=== PATIENT | male | born 1960 | race Caucasian/White ===

== ENCOUNTER 2018-07-07 13:42 | Inpatient (IN) | payer MEDICARE, OTHER ==
[2018-07-07] MEDS ORDERED: SODIUM CHLORIDE 0.9% 1,000 ML IV STA (14:29)
--- NOTE | 2018-07-07 14:35 | ED ---
General Adult HPI - General Chief complaint: Recheck/Abnormal Lab/Rx Stated complaint: confusion/foot pain Time Seen by Provider: 07/07/18 14:20 Source: patient, RN notes reviewed Mode of arrival: ambulatory Limitations: no limitations - History of Present Illness Initial comments: Patient 57-year-old male presented to the emergency room today with a chief complaint of infection to the right foot. Patient poor historian. He does state that he had surgery on his foot 8 years ago. He states that he was admitted at [facility] for 8 days and was released 8 days ago. He states that he was called by the family doctor's office and advised to come here in the emergency room for further evaluation. Patient states he does not believe that he is on an antibiotic but is unsure patient denies any other complaints currently. Patient denies any recent fever, chills, shortness of breath, chest pain, back pain, abdominal pain, nausea or vomiting, numbness or tingling, headaches or visual changes, or any other complaints. - Related Data Home Medications Medication Instructions Recorded Confirmed Aspirin 81 mg PO DAILY 03/14/14 07/07/18 Fluticasone/Salmeterol [Advair 1 puff INHALATION Q12HR 03/14/14 07/07/18 250-50 Diskus] cloZAPine [Clozaril] 300 mg PO HS 03/14/14 07/07/18 Albuterol Inhaler [Ventolin Hfa 1 puff INHALATION RT-QID PRN 07/07/18 07/07/18 Inhaler] Atenolol/Chlorthalidone [Tenoretic 1 tab PO DAILY 07/07/18 07/07/18 100 Tablet] Atorvastatin [Lipitor] 20 mg PO HS 07/07/18 07/07/18 Cholecalciferol [Vitamin D3] 2,000 unit PO DAILY 07/07/18 07/07/18 Divalproex ER [Depakote ER] 1,000 mg PO DAILY 07/07/18 07/07/18 Divalproex ER [Depakote ER] 1,500 mg PO HS 07/07/18 07/07/18 Docusate Sodium [Dok] 100 mg PO BID PRN 07/07/18 07/07/18 Ibuprofen [Motrin] 800 mg PO QID PRN 07/07/18 07/07/18 Ranitidine HCl 150 mg PO BID 07/07/18 07/07/18 cloZAPine [Clozaril] 100 mg PO DAILY 07/07/18 07/07/18 cloZAPine [Clozaril] 100 mg PO DAILY@1800 07/07/18 07/07/18 Allergies Allergy/AdvReac Type Severity Reaction Status Date / Time No Known Allergies Allergy Verified 07/07/18 13:53 Review of Systems ROS Statement: Those systems with pertinent positive or pertinent negative responses have been documented in the HPI. ROS Other: All systems not noted in ROS Statement are negative. Past Medical History Past Medical History: GERD/Reflux, Hyperlipidemia, Hypertension Additional Past Medical History / Comment(s): bipolar, schizophrenia, recent falls. History of Any Multi-Drug Resistant Organisms: None Reported Additional Past Surgical History / Comment(s): fx right foot. Past Anesthesia/Blood Transfusion Reactions: Unable to Obtain Past Psychological History: Bipolar, Schizophrenia Smoking Status: Current every day smoker Past Alcohol Use History: None Reported Past Drug Use History: None Reported General Exam - General Exam Comments Initial Comments: General: The patient is awake and alert, in no distress, and does not appear acutely ill. Eye: Extra-ocular movements are intact. No nystagmus. There is normal conjunctiva bilaterally. No signs of icterus. Ears, nose, mouth and throat: There are moist mucous membranes and no oral lesions. Neck: The neck is supple. Cardiovascular: There is a regular rate and rhythm. No murmur, rub or gallop is appreciated. Respiratory: Lungs are clear to auscultation, respirations are non-labored, breath sounds are equal. No wheezes, stridor, rales, or rhonchi. Musculoskeletal: Patient does have mild redness over the medial aspect of the first metatarsal. There is a pin or screw that appears to be exposed going through the skin. His pupils 2+. Sensations are intact. Cap refill less than 2 seconds. Shows good range of motion. Neurological: A&O x 3. CN II-XII intact, There are no obvious motor or sensory deficits. Coordination appears grossly intact. Speech is normal. Skin: Skin is warm and dry and no rashes or lesions are noted. Psychiatric: Cooperative, appropriate mood & affect, normal judgment. Limitations: no limitations Course Vital Signs 07/07/18 13:53 Temperature 97.9 F Pulse Rate 101 H Respiratory 18 Rate Blood Pressure 118/76 O2 Sat by Pulse 98 Oximetry Medical Decision Making - Medical Decision Making Patient's labs been reviewed does show 11,000 white count today all with lactic acid of 2.1. Patient was given a liter bolus here the emergency room. His vitals currently stable. Was tachycardic warm on occasion. No fever. Patient' [facility] Patient does have some redness over the medial aspect of the right foot. There is a screw that is improving through the skin. Patient will be started on antibiotics of vancomycin, Zosyn. Case discussed with physician Dr. Orozco who did discuss case with physician Dr. Chen request consult to infectious disease and orthopedics. - Lab Data Result diagrams: 07/07/18 14:47 07/07/18 14:47 Lab Results 07/07/18 07/07/18 07/07/18 Range/Units 14:47 14:47 14:47 WBC 11.7 H (3.8-10.6) k/uL RBC 3.68 L (4.30-5.90) m/uL Hgb 11.6 L (13.0-17.5) gm/dL Hct 36.8 L (39.0-53.0) % MCV 100.0 (80.0-100.0) fL MCH 31.6 (25.0-35.0) pg MCHC 31.5 (31.0-37.0) g/dL RDW 14.5 (11.5-15.5) % Plt Count 473 H (150-450) k/uL Neutrophils % (Manual) 71 % Band Neutrophils % 4 % Lymphocytes % (Manual) 11 % Monocytes % (Manual) 6 % Metamyelocytes % 4 % Myelocytes % 5 % Neutrophils # (Manual) 8.70 H (1.3-7.7) k/uL Lymphocytes # (Manual) 1.29 (1.0-4.8) k/uL Monocytes # (Manual) 0.70 (0-1.0) k/uL Metamyelocytes # (Man) 0.47 H (0) k/uL Myelocytes # (Manual) 0.59 H (0) k/uL Nucleated RBCs 0 (0-0) /100 WBC Manual Slide Review Performed Polychromasia Present Anisocytosis (manual) Present Macrocytosis Slight Sodium 139 (137-145) mmol/L Potassium 4.7 (3.5-5.1) mmol/L Chloride 104 (98-107) mmol/L Carbon Dioxide 26 (22-30) mmol/L Anion Gap 9 mmol/L BUN 26 H (9-20) mg/dL Creatinine 1.18 (0.66-1.25) mg/dL Est GFR (CKD-EPI)AfAm 79 (>60 ml/min/1.73 sqM) Est GFR (CKD-EPI)NonAf 69 (>60 ml/min/1.73 sqM) Glucose 122 H (74-99) mg/dL Plasma Lactic Acid Otilio 2.1 H* (0.7-2.0) mmol/L Calcium 9.6 (8.4-10.2) mg/dL Total Bilirubin 0.4 (0.2-1.3) mg/dL AST 30 (17-59) U/L ALT 11 L (21-72) U/L Alkaline Phosphatase 69 (38-126) U/L Total Protein 6.4 (6.3-8.2) g/dL Albumin 3.5 (3.5-5.0) g/dL Disposition Clinical Impression: Cellulitis of foot, right Disposition: ADMITTED IP TO THIS HOSP Condition: Stable Is patient prescribed a controlled substance at d/c from ED?: No Referrals: Umesh Chen MD [Primary Care Provider] - 1-2 days Time of Disposition: 15:59
[2018-07-07 15:11] LABS: HCT 36.8 % (39.0-53.0); HGB 11.6 gm/dL (13.0-17.5); MCH 31.6 pg (25.0-35.0); MCHC 31.5 g/dL (31.0-37.0); Macrocytosis Slight; Mean Platelet Volume 6.6; Platelet Count 473 k/uL (150-450); RBC 3.68 m/uL (4.30-5.90); RDW 14.5 % (11.5-15.5); WBC 11.7 k/uL (3.8-10.6)
--- NOTE | 2018-07-07 15:16 | XR ---
EXAMINATION TYPE: XR foot complete RT DATE OF EXAM: 07/07/2018 COMPARISON: None HISTORY: Post surgical changes TECHNIQUE: Three-view right foot FINDINGS: There is loss of the plantar arch. Some changes are through the tarsometatarsal junction co mpatible with Charcot joint. Plantar calcaneal heel spur is present. There is subluxation of the second metatarsal on the middle cuneiform. Multiple screws cross the tars ometatarsal junctions. There are fractures of the wires across the joint space. IMPRESSION: 1. There appears to be incomplete arthrodesis to the tarsometatarsal junction with multiple screws a nd wires passed into the joint space. There is loss of the plantar arch. There is some lucency surrou nding the screws in the first and second metatarsals suggest loosening. The first metatarsal cuneifor m screw may have some backing out.
[2018-07-07 15:20] LABS: Albumin 3.5 g/dL (3.5-5.0); Calcium 9.6 mg/dL (8.4-10.2); Potassium 4.7 mmol/L (3.5-5.1); Total Bilirubin 0.4 mg/dL (0.2-1.3); Total Protein 6.4 g/dL (6.3-8.2)
[2018-07-07 15:35] LABS: Anisocytosis (M) Present; Band Neutrophils % 4 %; Lymphocytes # (M) 1.29 k/uL (1.0-4.8); Metamyelocytes # (M) 0.47 k/uL (0); Metamyelocytes % 4 %; Myelocytes # (M) 0.59 k/uL (0); Myelocytes % 5 %; Neutrophils % (M) 71 %; Nucleated Red Blood Cells 0 /100 WBC (0-0); Polychromasia Present; Total Cells Counted 200
[2018-07-07] MEDS ORDERED: PIPERACILLIN-TAZOBACTAM 3.375 GM in DEXTROSE/WATER 1 50ML.BAG IVPB STA (15:55)
[2018-07-07] MEDS ORDERED: VANCOMYCIN IV PER PHARMACY 1 EACH MISC MISCELLANE PRN (15:55)
[2018-07-07] MEDS ORDERED: SODIUM CHLORIDE 0.9% 1,000 ML IV ONE (15:59)
[2018-07-07] MEDS ORDERED: ONDANSETRON 4 MG/2 ML VIAL IVP PRN (15:59)
[2018-07-07] MEDS ORDERED: NALOXONE 0.4 MG/ML 1 ML VIAL IV PRN (15:59)
[2018-07-07] MEDS ORDERED: VANCOMYCIN 1,250 MG in SODIUM CHLORIDE 0.9% 250 ML IVPB STA (16:00)
[2018-07-07] MEDS ORDERED: ALBUTEROL NEBULIZED 2.5 MG/3 ML INHALATION PRN (20:19)
[2018-07-07] MEDS: cloZAPine 100 MG TAB PO SCH (21:18)
[2018-07-07] MEDS: NICOTINE 21MG/24HR PATCH TRANSDERM SCH (21:19)
[2018-07-07] MEDS: DIVALPROEX ER 500 MG TAB.ER.24H PO SCH (21:19)
[2018-07-07] MEDS: FAMOTIDINE 20 MG TAB PO SCH (21:19)
[2018-07-07] MEDS: DOCUSATE 100 MG CAP PO SCH (21:19)
[2018-07-08] MEDS: PIPERACILLIN-TAZOBACTAM 3.375 GM in DEXTROSE/WATER 1 50ML.BAG IVPB SCH ×2 (04:15→14:33)
[2018-07-08] MEDS ORDERED: VANCOMYCIN 1,250 MG in SODIUM CHLORIDE 0.9% 250 ML IVPB SCH (06:00)
[2018-07-08] MEDS: SYMBICORT 80-4.5 MCG INHALER INHALATION SCH ×2 (07:32→19:27)
[2018-07-08] MEDS: DOCUSATE 100 MG CAP PO SCH ×2 (07:43→21:16)
[2018-07-08] MEDS: FAMOTIDINE 20 MG TAB PO SCH ×2 (07:43→21:16)
[2018-07-08 07:46] LABS: HCT 37.2 % (39.0-53.0); HGB 11.3 gm/dL (13.0-17.5); Hypochromasia Slight; MCH 31.8 pg (25.0-35.0); MCHC 30.3 g/dL (31.0-37.0); MCV 104.9 fL (80.0-100.0); Macrocytosis Moderate; Mean Platelet Volume 6.4; Platelet Count 426 k/uL (150-450); RBC 3.54 m/uL (4.30-5.90); RDW 15.3 % (11.5-15.5); WBC 11.3 k/uL (3.8-10.6)
[2018-07-08 08:02] LABS: ALT 16 U/L (21-72); AST 22 U/L (17-59); Alkaline Phosphatase 62 U/L (38-126); Anion Gap 6 mmol/L; Blood Urea Nitrogen 22 mg/dL (9-20); Calcium 9.3 mg/dL (8.4-10.2); Carbon Dioxide 29 mmol/L (22-30); Chloride 108 mmol/L (98-107); Glucose 95 mg/dL (74-99); Potassium 5.3 mmol/L (3.5-5.1); Sodium 143 mmol/L (137-145); Total Bilirubin 0.3 mg/dL (0.2-1.3); Total Protein 5.6 g/dL (6.3-8.2)
[2018-07-08 09:51] LABS: Band Neutrophils % 3 %; Basophils # (M) 0.11 k/uL (0-0.2); Eosinophils # (M) 0.23 k/uL (0-0.7); Lymphocytes # (M) 1.58 k/uL (1.0-4.8); Metamyelocytes # (M) 0.23 k/uL (0); Metamyelocytes % 2 %; Monocytes # (M) 0.57 k/uL (0-1.0); Myelocytes # (M) 0.45 k/uL (0); Myelocytes % 4 %; Neutrophils % (M) 71 %; Nucleated Red Blood Cells 0 /100 WBC (0-0); Promyelocytes # (M) 0.11 k/uL (0); Promyelocytes % 1 %; Total Cells Counted 200
[2018-07-08 09:52] LABS: Toxic Granulation Present
[2018-07-08 09:53] LABS: Polychromasia Present
[2018-07-08 12:07] VITALS: BMI 22.8
[2018-07-08] MEDS: cefTRIAXone 2,000 MG in SODIUM CHLORIDE 0.9% 100 ML IVPB SCH (14:20)
--- NOTE | 2018-07-08 14:56 | HP ---
HISTORY AND PHYSICAL CHIEF COMPLAINT: Pallor, weakness and malaise with diaphoresis. HISTORY OF PRESENT ILLNESS: This is another admission for this schizophrenic gentleman. He was just in [facility]. He was admitted with FUO which was thought to be due to his urine. However, there is also concern about the right foot where he has an old traumatic injury with deformity. When he was at [facility], there was question whether or not this could be osteomyelitis. However, the white cell labeled bone scan was not confirmatory. He does have a screw that is starting to protrude through the skin. He was at home with a caregiver who thought that he did not look well and described as being pale, clammy and short of breath. She started to take him to the emergency room. REVIEW OF SYSTEMS: The patient gives a limited history, but states he feels fine. He is not having any chest pain, shortness of breath, headaches, abdominal pain, vomiting, diarrhea, urinary complaints, excessive pain in the foot, etc. Review of systems, past medical history, family history are all essentially unremarkable otherwise. HE IS ALLERGIC TO MELLARIL. MEDICATIONS: He is on numerous medications including atorvastatin, ranitidine, ibuprofen, Tenoretic, aspirin, Ventolin HFA, Advair, Depakote, Clozaril. The rest of his history is unremarkable. He does have bipolar depression and schizophrenia. He still smokes a pack cigarettes a day. PHYSICAL EXAM: Blood pressure 122/78 with a pulse 74, respirations and he is afebrile. General he is well developed, well nourished, in no acute distress. Color is good. Hydration is good. Head, ears, eyes, nose, mouth, and throat are normal. Neck veins are not distended. Chest is clear. Cardiac exam is normal with no murmurs or extra sounds. Abdomen is soft. Right foot demonstrates his usual deformity, but there is even less redness than there was when he was at [facility]. The foot is viable. Neurologically, he is intact. IMPRESSION: 1. Possible infection or sepsis. 2. Leukocytosis of 11,000. 3. Old injury to the right foot. 4. Schizophrenia. 5. Recent urinary tract infection. PLAN: 1. Bed rest. 2. IV fluids. 3. Continue to look for occult infection. 4. Follow up on sepsis with lactic acid 2.1. MMODL / IJN: [id number] /
--- NOTE | 2018-07-08 15:02 | PN ---
PROGRESS NOTE DATE OF SERVICE: 07/08/2018. CHIEF COMPLAINT: Possible underlying infection or sepsis. HISTORY OF PRESENT ILLNESS: This gentleman is doing well and he is not complaining of any pain, shortness of breath, etc. PHYSICAL EXAM: Chest is clear. Cardiac exam is normal and the abdomen is soft and nontender and the right foot is unchanged. IMPRESSION: 1. Possible underlying infection or sepsis. 2. Rule out urinary tract infection. 3. Orthopedic consult for his old right foot injury with there is a protruding fixation screw. MMODL / IJN: [id number] /
--- NOTE | 2018-07-08 15:17 | CONS ---
CONSULTATION DATE OF SERVICE: 07/08/2018 REASON FOR CONSULTATION: Right foot cellulitis. HISTORY OF PRESENT ILLNESS: The patient is a 57-year-old male with a past medical history significant for status post surgery on his right foot with placement of hardware. The patient said it was done about [address] Avalos ; however, he is not sure exactly in which hospital it was done. The patient was recently admitted at [facility] with sepsis, and he had a fever and elevated white count with initial concern about possible UTI. However, he was noted to have swelling and redness of the right medial foot area with hardware sticking out. With concern about possible infected hardware and osteomyelitis, Orthopedics was consulted. However, they would not do any procedure for him at that facility, as they had not done the initial surgery. The patient did have a WBC scan which was not significantly positive. The patient was on IV Rocephin, to which he seemed to respond, and he was subsequent discharged on oral Ceftin. Now he has been admitted to this facility for further workup of the same and to be evaluated by Dr. Olson, foot orthopedics. The patient is currently afebrile. He denies having any chest pain or shortness of breath or cough. No abdominal pain or any worsening pain to the right foot area. Swelling and redness have decreased and there is no drainage from it. Denies having any new symptoms. REVIEW OF SYSTEMS: CONSTITUTIONAL: Positive for weakness but no high-grade fever. EYES: No complaint. ENT: No complaint. RESPIRATORY: No complaint. CARDIOVASCULAR: No complaint. GENITOURINARY: No complaint. GASTROINTESTINAL: No complaint. MUSCULOSKELETAL: As per HPI. INTEGUMENTARY: As per HPI. PSYCHOLOGICAL: No complaint. ENDOCRINE: No complaint. NEUROLOGICAL: No complaint. PAST MEDICAL HISTORY: 1. Hypertension. 2. Hyperlipidemia. 3. Gastroesophageal reflux disease. 4. Bipolar disorder. 5. Schizophrenia. 6. Right foot fracture. PAST SURGICAL HISTORY: Right foot fracture repair with hardware. SOCIAL HISTORY: Current an everyday smoker. Denies drinking or drug use. FAMILY HISTORY: No pertinent findings noticed. ALLERGIES: NO KNOWN DRUG ALLERGIES. CURRENT MEDICATIONS: 1. Tylenol. 2. Ventolin. 3. Tenormin. 4. Symbicort. 5. Clozapine. 6. Depakote. 7. Colace. 8. Pepcid. 9. Narcan. 10.Nicotine patch. 11.Zofran. 12.MiraLAX. 13.Vancomycin. 14.Zosyn. PHYSICAL EXAMINATION: Blood pressure is 105/69 with a pulse of 73, temperature 97.7. He is 98% on room air. General description is a middle-aged male lying in bed in no distress. HEENT examination shows slight pallor. No scleral icterus. Oral mucosa membrane is dry. No pharyngeal erythema or thrush. NECK: Trachea is central. No thyromegaly. LUNGS: Unlabored breathing. Clear to auscultation anteriorly. No wheeze or crackle. HEART: S1, S2. Regular rate and rhythm. ABDOMEN: Soft. No tenderness. Right foot medial border has hardware that is sticking out, though surrounding swelling and redness is not as appreciated as it was at the other facility. Neurologically patient is awake, alert, oriented x3. Mood and affect normal. LABS: Hemoglobin 11.3, white count 11.3 with a BUN of 22, creatinine 1.06. Lactic acid was 2.1 and is down to 1.5. He did have blood cultures obtained which are currently pending. Patient did have x-ray of the right foot which shows incomplete arthrodesis to the transmetatarsal junction with multiple screws and wires. There is loss of plantar arch with some lucency surrounding the screws in the first and second metatarsals suggestive of loosening. DIAGNOSTIC IMPRESSION AND PLAN: Patient admitted to hospital with right foot cellulitis in a patient who did have extensive surgery in the past, now with evidence of the hardware sticking out with evidence of cellulitis at the [facility] with concern about hardware infection and possible osteomyelitis. Unfortunately, the orthopedic service at the [facility] was unable to help for removal of the hardware and possible deep culture; hence admitted to this facility to be evaluated by foot orthopedics, Dr. Olson. In view of the patient responding to the Rocephin at the other facility, concern is about possible strep or an MSSA responsible for possible cellulitis or infection. Clinically doubt MRSA or Pseudomonas aeruginosa. PLAN: 1. Discontinue vancomycin as well as the Zosyn. 2. We will start the patient on Rocephin 2 grams IV piggyback daily. 3. Will obtain baseline sed rate and CRP. 4. Await for Dr. Olson's evaluation and possible removal of the hardware and obtaining deep cultures to guide further antibiotic therapy. Thank you for this consultation. Will follow this patient along with you. MMODL / IJN: [id number] /
[2018-07-08 15:56] LABS: Appearance,Urine Clear (Clear); Bilirubin,Urine Negative (Negative); Blood,Urine Negative (Negative); Color,Urine Light Yellow; Glucose,Urine (UA) Negative (Negative); Ketones,Urine Negative (Negative); Leukocyte Esterase,Urine Negative (Negative); Nitrite,Urine Negative (Negative); Protein,Urine Negative (Negative); Specific Gravity,Urine 1.006 (1.001-1.035); Urobilinogen,Urine <2.0 mg/dL (<2.0)
--- NOTE | 2018-07-08 16:57 | P.CNOR ---
History of Present Illness - HPI Consult date: 07/08/18 Requesting physician: Taiwo Baxter Consult reason: other History of present illness: Patient 57-year-old male seen at bedside this afternoon in consultation for his right foot. Accuracy of his history is unknown however apparently he had a previous foot surgery with hardware implantation some years ago. He states that was done by Dr. Vizcaino in [facility]. He presented to the emergency room yesterday, 07/07/2018 with a chief complaint of infection to the right foot. Patient is a poor historian. He states that he was admitted at [facility] for 8 days and was released 8 days ago. He states that he was called by the family doctor's office and advised to come here in the emergency room for further evaluation. Patient states he does not believe that he is on an antibiotic but is unsure patient denies any other complaints currently. Patient denies any recent fever, chills, shortness of breath, chest pain, back pain, abdominal pain, nausea or vomiting, numbness or tingling, headaches or visual changes, or any other complaints. Review of Systems All systems: negative Constitutional: Denies chills, Denies fever Eyes: denies blurred vision, denies pain Ears, nose, mouth and throat: Denies headache, Denies sore throat Cardiovascular: Denies chest pain, Denies shortness of breath Respiratory: Denies cough Gastrointestinal: Denies abdominal pain, Denies diarrhea, Denies nausea, Denies vomiting Musculoskeletal: Denies myalgias Integumentary: Denies pruritus, Denies rash Neurological: Denies numbness, Denies weakness Psychiatric: Denies anxiety, Denies depression Endocrine: Denies fatigue, Denies weight change Past Medical History Past Medical History: GERD/Reflux, Hyperlipidemia, Hypertension Additional Past Medical History / Comment(s): pt alert and orientated to 3 but poor historian . pattern chart writer called [facility] public guardian for code status. dr orantes and [facility] closed pattern chart writer unable to get any hx info or vaccine dates. per [facility]: bipolar, schizophrenia, recent falls. per [facility] seizure 2013 ?fx rt foot in past History of Any Multi-Drug Resistant Organisms: None Reported Additional Past Surgical History / Comment(s): fx right foot. 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, uses cane when up Smoking Status: Current every day smoker Past Alcohol Use History: Rare Additional Past Alcohol Use History / Comment(s): started smoking age 14 smokes 1 ppd Past Drug Use History: None Reported - Past Family History Mother Additional Family Medical History / Comment(s): "i think she had heart problems " Father Family Medical History: Liver Disease Additional Family Medical History / Comment(s): "cirrhosis of the liver, heart problems-cardiac arrest"" Medications and Allergies Home Medications Medication Instructions Recorded Confirmed Type Aspirin 81 mg PO DAILY 03/14/14 07/07/18 History Fluticasone/Salmeterol [Advair 1 puff INHALATION Q12HR 03/14/14 07/07/18 History 250-50 Diskus] cloZAPine [Clozaril] 300 mg PO HS 03/14/14 07/07/18 History Albuterol Inhaler [Ventolin Hfa 1 puff INHALATION RT-QID PRN 07/07/18 07/07/18 History Inhaler] Atenolol/Chlorthalidone [Tenoretic 1 tab PO DAILY 07/07/18 07/07/18 History 100 Tablet] Atorvastatin [Lipitor] 20 mg PO HS 07/07/18 07/07/18 History Cholecalciferol [Vitamin D3] 2,000 unit PO DAILY 07/07/18 07/07/18 History Divalproex ER [Depakote ER] 1,000 mg PO DAILY 07/07/18 07/07/18 History Divalproex ER [Depakote ER] 1,500 mg PO HS 07/07/18 07/07/18 History Docusate Sodium [Dok] 100 mg PO BID 07/07/18 07/07/18 History Polyethylene Glycol 3350 [Miralax] 17 gm PO DAILY 07/07/18 07/07/18 History Ranitidine HCl 150 mg PO BID 07/07/18 07/07/18 History cloZAPine [Clozaril] 100 mg PO DAILY 07/07/18 07/07/18 History cloZAPine [Clozaril] 100 mg PO DAILY@1800 07/07/18 07/07/18 History Allergies Allergy/AdvReac Type Severity Reaction Status Date / Time No Known Allergies Allergy Verified 07/07/18 13:53 Physical Examination Inspection of the right foot shows a prominent screwhead through the skin at the base of the first metatarsal. There is no diffuse erythema, bleeding or drainage. Neurovascular status is intact with gross motor and sensation throughout the toes, foot, ankle and lower extremity. 2+ dorsalis pedis pulses present and less than 2 second capillary refill is present. Calf is soft and nontender. Results X-rays of the right foot show a prominent screw at the first metatarsal base. There are also 3 additional screws in the foot as well as 2 pins which appears two pins are broken. There is no acute fracture dislocation. - Labs Labs: Abnormal Lab Results - Last 24 Hours (Table) 07/08/18 07/08/18 07/08/18 Range/Units 06:58 06:58 13:24 WBC 11.3 H (3.8-10.6) k/uL RBC 3.54 L (4.30-5.90) m/uL Hgb 11.3 L (13.0-17.5) gm/dL Hct 37.2 L (39.0-53.0) % MCV 104.9 H (80.0-100.0) fL MCHC 30.3 L (31.0-37.0) g/dL Neutrophils # (Manual) 8.30 H (1.3-7.7) k/uL Metamyelocytes # (Man) 0.23 H (0) k/uL Myelocytes # (Manual) 0.45 H (0) k/uL Promyelocytes # (Man) 0.11 H (0) k/uL ESR 25 H (0-15) mm/hr Potassium 5.3 H (3.5-5.1) mmol/L Chloride 108 H (98-107) mmol/L BUN 22 H (9-20) mg/dL ALT 16 L (21-72) U/L Total Protein 5.6 L (6.3-8.2) g/dL Albumin 3.0 L (3.5-5.0) g/dL H & H 07/07/18 07/08/18 Range/Units 14:47 06:58 Hgb 11.6 L 11.3 L (13.0-17.5) gm/dL Hct 36.8 L 37.2 L (39.0-53.0) % Result Diagrams: 07/08/18 06:58 07/08/18 06:58 - Diagnostic results Ankle/Foot x-ray: report reviewed, image reviewed Assessment and Plan (1) Cellulitis of foot, right Narrative/Plan: This patient has been reviewed with Dr. Baxter. Plan is to proceed with surgical intervention tomorrow morning, 07/09/2018 including hardware removal and I&D of the right foot. Patient has been placed nothing by mouth after midnight. The procedure and consent have been ordered. Preoperative clearance has been requested. He'll need placement postoperatively and referral to initial surgeon. Current Visit: Yes Status: Acute Priority: Medium Code(s): L03.115 - CELLULITIS OF RIGHT LOWER LIMB SNOMED Code(s): 397975086 (2) Naomi toxicity Current Visit: No Status: Acute Priority: Medium Code(s): T56.891A - TOXIC EFFECT OF OTH METALS, ACCIDENTAL (UNINTENTIONAL), INIT SNOMED Code(s): 625298592 (3) Seizure Current Visit: No Status: Acute Priority: Medium Code(s): R56.9 - UNSPECIFIED CONVULSIONS SNOMED Code(s): 04715959 Time with Patient: Less than 30
[2018-07-08] MEDS: cloZAPine 100 MG TAB PO SCH ×2 (18:39→21:16)
[2018-07-08] MEDS: DIVALPROEX ER 500 MG TAB.ER.24H PO SCH (21:16)
[2018-07-08] MEDS: NICOTINE 21MG/24HR PATCH TRANSDERM SCH (21:16)
[2018-07-09] MEDS: LACTATED RINGERS 1,000 ML IV SCH (05:32)
[2018-07-09] MEDS ORDERED: fentaNYL (PF) 50 MCG/ML 2 ML AMP IV PRN (06:00)
[2018-07-09] MEDS ORDERED: DEXAMETHASONE SOD PHOSPHATE 10 MG/ML 1 ML VIAL IV ONE (06:00)
[2018-07-09] MEDS ORDERED: MIDAZOLAM 2 MG/2 ML VIAL IV PRN (06:00)
[2018-07-09 08:20] LABS: Basophils # (A) 0.1 k/uL (0-0.2); Basophils % (A) 1 %; Eosinophils # (A) 0.2 k/uL (0-0.7); Eosinophils % (A) 2 %; HCT 36.3 % (39.0-53.0); Lymphocytes # (A) 1.3 k/uL (1.0-4.8); Lymphocytes % (A) 12 %; MCH 32.6 pg (25.0-35.0); Macrocytosis Slight; Mean Platelet Volume 6.6; Monocytes # (A) 0.5 k/uL (0-1.0); Monocytes % (A) 5 %; Neutrophils # (A) 8.9 k/uL (1.3-7.7); Neutrophils % (A) 81 %; Platelet Count 386 k/uL (150-450); RBC 3.68 m/uL (4.30-5.90); RDW 15.8 % (11.5-15.5)
[2018-07-09 08:26] LABS: ALT 8 U/L (21-72); AST 20 U/L (17-59); Albumin 3.1 g/dL (3.5-5.0); Alkaline Phosphatase 62 U/L (38-126); Anion Gap 9 mmol/L; Blood Urea Nitrogen 21 mg/dL (9-20); Calcium 9.5 mg/dL (8.4-10.2); Carbon Dioxide 27 mmol/L (22-30); Chloride 107 mmol/L (98-107); Glucose 93 mg/dL (74-99); MCV 98.7 fL (80.0-100.0); Potassium 4.9 mmol/L (3.5-5.1); Sodium 143 mmol/L (137-145); Total Bilirubin 0.3 mg/dL (0.2-1.3); Total Protein 5.8 g/dL (6.3-8.2)
[2018-07-09] MEDS: cefTRIAXone 2,000 MG in SODIUM CHLORIDE 0.9% 100 ML IVPB SCH (09:08)
[2018-07-09] MEDS: SYMBICORT 80-4.5 MCG INHALER INHALATION SCH ×2 (09:37→19:27)
[2018-07-09] MEDS ORDERED: PROPOFOL 10 MG/ML 20 ML VIAL IV ONE (10:47)
[2018-07-09] MEDS ORDERED: fentaNYL (PF) 50 MCG/ML 2 ML AMP ONE (10:47)
[2018-07-09] MEDS ORDERED: LACTATED RINGERS 1,000 ML IV ONE (10:47)
[2018-07-09] MEDS ORDERED: MIDAZOLAM 2 MG/2 ML VIAL ONE (10:47)
[2018-07-09] MEDS ORDERED: LIDOCAINE 1% INJ 10MG/ML (20 ML MDV) ONE (10:47)
[2018-07-09] MEDS: CHLORTHALIDONE 25 MG TAB PO SCH (11:39)
[2018-07-09] MEDS: ATENOLOL 50 MG TAB PO SCH (11:39)
[2018-07-09] MEDS: DOCUSATE 100 MG CAP PO SCH ×2 (11:40→20:19)
[2018-07-09] MEDS: FAMOTIDINE 20 MG TAB PO SCH ×2 (11:41→20:19)
[2018-07-09] MEDS: POLYETHYLENE GLYCOL 3350 17 GM POWD.PACK PO SCH (11:41)
[2018-07-09] MEDS: cloZAPine 100 MG TAB PO SCH ×3 (12:29→20:18)
[2018-07-09] MEDS: DIVALPROEX ER 500 MG TAB.ER.24H PO SCH ×2 (12:30→20:19)
--- NOTE | 2018-07-09 14:18 | PN ---
PROGRESS NOTE DATE OF SERVICE: 07/09/2018. HISTORY OF PRESENT ILLNESS: FUO, urinary tract infection, possible osteomyelitis of the right foot. HISTORY OF PRESENT ILLNESS: This gentleman is doing fairly well. His temperature is down. He is going to the operating room today to have the screw removed from his foot and simultaneous debridement. PHYSICAL EXAM: He is awake and alert and feels well. Color is good. Chest is clear. Cardiac exam is normal. IMPRESSION: Charcot foot with protruding fixation screw and possible secondary cellulitis or osteomyelitis. PLAN: OR today and then follow up postoperatively. MMODL / IJN: [id number] /
[2018-07-09] MEDS: NICOTINE 21MG/24HR PATCH TRANSDERM SCH (20:18)
[2018-07-09] MEDS: ACETAMINOPHEN TAB 325 MG TAB PO PRN (20:19)
[2018-07-10] MEDS: LACTATED RINGERS 1,000 ML IV SCH (05:17)
--- NOTE | 2018-07-10 08:28 | OP ---
OPERATIVE REPORT DATE OF PROCEDURE: 07/09/2018. PRE-PROCEDURE DIAGNOSIS: Symptomatic hardware, right foot. POSTOPERATIVE DIAGNOSIS: Symptomatic hardware right foot. PROCEDURE PERFORMED: Right foot removal protruding deep screw. SURGEON: Taiwo Baxter M.D. ANESTHESIA: Conscious sedation with local. ESTIMATED BLOOD LOSS: Minimal. TOURNIQUET: None. DRAINS: None. COMPLICATIONS: None apparent. DISPOSITION: Postanesthesia care unit. INDICATIONS: Robbie is a 57-year-old male who had a fairly significant previous foot surgery with hardware implantation some years ago. He is a very poor historian. Based on the preoperative radiographs, it appeared that he had a Lisfranc injury with open reduction, internal fixation of that injury. The fixation has failed and he has significant deformity consistent with failed Lisfranc surgery. The most medial screw is protruding through the skin. We have been consulted for evaluation of this. Plan was for removal of the protruding screw with irrigation and debridement of that area. The risks of procedure were discussed with him in detail. These risks include, but are not limited to risk of infection, nerve damage, bleeding, pain. Robbie does understand as well that removal of the screw will not alter the underlying tissue that he has with his foot, which is a failed Lisfranc injury with a resultant deformity of the midfoot and forefoot. All his questions were answered to his satisfaction. Appropriate informed consent was obtained. DESCRIPTION OF THE PROCEDURE: Patient identified in preop holding area. Surgical site was marked by both the patient and myself. He was on antibiotics IV on the floor preoperatively. He was then transferred to the operative suite. He was placed supine on the operative table. Conscious sedation was administered and dosed per the anesthesia without apparent complication. The patient's right lower extremity was then prepped and draped in usual sterile fashion. Standard surgical pause undertaken to ensure the we were operating on the correct site and appropriate preoperative antibiotics were given. All staff in room were in agreement. We proceeded. I was able to easily remove the screw. I was able to remove the screw with the hemostats. The screwdriver was not even needed. The small wound was then debrided with a curette. This was a very small wound. It was the diameter of the screw, which was approximately 3.5 mm. I did take deep cultures after the debridement. I then thoroughly irrigated the area with sterile saline solution. The wound was left open to heal by secondary intention. Sterile compressive dressing was then applied. All sponge and needle counts were deemed correct prior to closure. The patient tolerated the procedure without apparent complication. He was transferred recovery room in stable condition. TANIA / JIGNESHN: [id number] /
[2018-07-10] MEDS: SYMBICORT 80-4.5 MCG INHALER INHALATION SCH ×2 (09:20→19:25)
[2018-07-10] MEDS: ATENOLOL 50 MG TAB PO SCH (10:12)
[2018-07-10] MEDS: cefTRIAXone 2,000 MG in SODIUM CHLORIDE 0.9% 100 ML IVPB SCH (10:13)
[2018-07-10] MEDS: POLYETHYLENE GLYCOL 3350 17 GM POWD.PACK PO SCH (10:26)
[2018-07-10] MEDS: FAMOTIDINE 20 MG TAB PO SCH ×2 (10:26→20:04)
[2018-07-10] MEDS: DOCUSATE 100 MG CAP PO SCH ×2 (10:28→20:05)
[2018-07-10] MEDS: cloZAPine 100 MG TAB PO SCH ×3 (10:28→20:05)
[2018-07-10] MEDS: DIVALPROEX ER 500 MG TAB.ER.24H PO SCH ×2 (10:28→20:05)
[2018-07-10] MEDS: CHLORTHALIDONE 25 MG TAB PO SCH (10:29)
--- NOTE | 2018-07-10 11:50 | P.PN ---
Progress Note - Text Progress Note Date: 07/10/18 Patient is a pleasant 58-year-old male who is seen and examined at bedside for follow-up evaluation after undergoing right foot removal of protruding deep screw. Patient tolerated the procedure well and has done well postoperatively. He continues to have an Mason wrap intact over the right lower extremity. He has no new complaints at the bedside. Patient is known to have previous he undergone foot surgery with hardware implantation years ago on the patient has previously stated was performed by Dr. Avalos ___ in [place]. Patient continues to be seen and examined by Dr. Funez in infectious disease for cellulitis of the right lower extremity. Patient has a significant past medical history which includes hypertension, hyperlipidemia, bipolar disorder, schizophrenia, and right foot fracture Physical Exam: Patient is awake, alert, and oriented 3 Vital signs stable Good chest excursion with deep inspiration and expiration Abdomen soft nontender No signs or symptoms of DVT; no calf pain Dressing over the right ankle including Mason wrap is clean, dry, and intact No active drainage or obvious sign of infection on the dressing of the right foot Patient is able to perform gentle dorsiflexion and plantarflexion of the right foot Patient is able to wiggle toes and feel sensation over the right foot Active range of motion the right knee without difficulty Assessment: Status post right foot removal of protruding deep screw Right foot pain Right foot cellulitis History of hypertension, hyperlipidemia, bipolar disorder, schizophrenia, and right foot fracture Plan: 1. Patient has been discussed in detail with Dr. Taiwo Baxter. Patient underwent right foot removal of deep screw hardware yesterday, 07/09/2018. Patient has been doing well postoperatively in that regard. He continues to be seen by Dr. Funez infectious disease and continues to receive Rocephin as prescribed. He continues to be followed by medicine. At this time, we are not currently planning for further treatment, evaluation, or surgical intervention regards to his right foot. Would recommend continued treatment with Dr. Funez in infectious disease and Dr. Chen in medicine. At this time, we recommend patient follow-up with the surgeon who previously performed the surgery on his right foot. Will not plan for follow-up evaluation in the outpatient setting with Dr. Baxter. From an orthopedic standpoint, patient is clear for discharge once cleared by other medical providers. We will sign off on the patient from orthopedic standpoint. 2. Patient will continue be seen in exam by Dr. Funez in infectious disease 3. Patient will continue to be seen by Dr. Chen in medicine 4. Patient has been discussed in detail with Dr. Taiwo Baxter and he agrees with this plan
--- NOTE | 2018-07-10 13:40 | PN ---
PROGRESS NOTE CHIEF COMPLAINT: Protruding foreign body right foot. HISTORY OF PRESENT ILLNESS: This gentleman was brought to the operating room yesterday and the screw was removed. Dressing is dry. He is not having a lot of pain. PHYSICAL EXAM: Is normal and dressing is dry. IMPRESSION: Status post old injury to right foot with protruding fixation screw and cellulitis. PLAN: Continue to follow and watch for any evidence of further infection or osteomyelitis. MMODL / IJN: [id number] /
[2018-07-10] MEDS: ACETAMINOPHEN TAB 325 MG TAB PO PRN (17:01)
[2018-07-10] MEDS: NICOTINE 21MG/24HR PATCH TRANSDERM SCH (20:07)
--- NOTE | 2018-07-11 00:37 | PN ---
PROGRESS NOTE DATE OF SERVICE: 07/10/2018. REASON FOR FOLLOWUP: Right foot cellulitis, concern for possible infected hardware. INTERVAL HISTORY: The patient is afebrile. The patient was taken to the OR yesterday, he is status post removal of hardware from his right foot medial side. No significant purulent secretion was noted as per the OR documented report. The patient denies pain to the right foot area. Denies any chest pain, shortness of breath, cough. No abdominal pain or any diarrhea. EXAMINATION: Blood pressure 110/72 with a pulse of 78, temp 98.3, he is 97% on room air. GENERAL DESCRIPTION: A middle-aged male lying in bed in no distress. RESPIRATORY SYSTEM: Unlabored breathing. Clear to auscultation anteriorly. HEART: S1, S2. Regular rate and rhythm. ABDOMEN: Soft, no tenderness. EXTREMITIES: Right foot is currently dressed up, no obvious drainage on the dressing. LABS: BUN of 21, creatinine 0.92, hemoglobin is 12.1, 11.0. OR cultures currently pending. DIAGNOSTIC IMPRESSION AND PLAN: Patient with right foot cellulitis with exposed hardware. The screw has been removed. Cultures are currently pending. We will wait for the culture to finalize to determine discharge antibiotics. As per the operative report, no evidence of any purulence or osteomyelitis noticed. Continue supportive care. MMODL / IJN: [id number] /
[2018-07-11] MEDS: ACETAMINOPHEN TAB 325 MG TAB PO PRN ×2 (05:25→18:08)
[2018-07-11] MEDS: LACTATED RINGERS 1,000 ML IV SCH (05:50)
[2018-07-11] MEDS: cefTRIAXone 2,000 MG in SODIUM CHLORIDE 0.9% 100 ML IVPB SCH (08:13)
[2018-07-11] MEDS: ATENOLOL 50 MG TAB PO SCH (08:13)
[2018-07-11] MEDS: cloZAPine 100 MG TAB PO SCH ×3 (08:14→20:10)
[2018-07-11] MEDS: CHLORTHALIDONE 25 MG TAB PO SCH (08:14)
[2018-07-11] MEDS: FAMOTIDINE 20 MG TAB PO SCH ×2 (08:16→20:10)
[2018-07-11] MEDS: DOCUSATE 100 MG CAP PO SCH ×2 (08:16→20:14)
[2018-07-11] MEDS: POLYETHYLENE GLYCOL 3350 17 GM POWD.PACK PO SCH (08:16)
[2018-07-11] MEDS: DIVALPROEX ER 500 MG TAB.ER.24H PO SCH ×2 (08:16→20:10)
[2018-07-11] MEDS: SYMBICORT 80-4.5 MCG INHALER INHALATION SCH ×2 (08:42→19:37)
--- NOTE | 2018-07-11 16:35 | PN ---
PROGRESS NOTE DATE OF SERVICE: 07/11/2018 CHIEF COMPLAINT: 1. Status post removal of screw from the right foot. 2. Schizophrenia. HISTORY OF PRESENT ILLNESS: This gentleman is doing well. He is comfortable. Will now have to work on a discharge plan. PHYSICAL EXAMINATION: Chest is clear. Cardiac exam is normal. Abdomen is soft, nontender. His foot is still in an Mason wrap. IMPRESSION: 1. Status post removal of fixation screw from the right foot. 2. Schizophrenia. PLAN: Work on a discharge plan. MMODL / IJN: [id number] /
[2018-07-11] MEDS: NICOTINE 21MG/24HR PATCH TRANSDERM SCH (20:09)
--- NOTE | 2018-07-11 23:56 | PN ---
PROGRESS NOTE DATE OF SERVICE: 07/11/2018 REASON FOR FOLLOWUP: Right foot exposed hardware and a question of possible cellulitis. INTERVAL HISTORY: The patient is afebrile. The patient's pain to the right foot is currently controlled. Denies having any chest pain, shortness of breath or cough. No abdominal pain or any diarrhea. PHYSICAL EXAMINATION: His blood pressure is 98/64 with a pulse of 55, temperature 98.3. He is 96% on room air. General description is a middle-aged male lying in bed in no distress. RESPIRATORY SYSTEM: Unlabored breathing. Clear to auscultation anteriorly. HEART: S1, S2. Regular rate and rhythm. ABDOMEN: Soft. No tenderness. Right foot medial border at the site of the hardware that has been removed with very minimal erythema. No fluctuation or induration or drainage noticed. LABS: The cultures from the right foot are negative as well as the blood cultures. DIAGNOSTIC IMPRESSION AND PLAN: Patient admitted to hospital with concern for cellulitis of the right foot and possible infected hardware. That has been removed, with the cultures so far negative for any resistant pathogen; less concern for underlying osteomyelitis. I recommend finishing therapy with a short course of oral Keflex upon discharge if the cultures remain negative. Continue supportive care. MMODL / IJN: [id number] /
[2018-07-12] MEDS: LACTATED RINGERS 1,000 ML IV SCH (06:08)
[2018-07-12] MEDS: DIVALPROEX ER 500 MG TAB.ER.24H PO SCH ×2 (07:50→20:10)
[2018-07-12] MEDS: FAMOTIDINE 20 MG TAB PO SCH ×2 (07:50→20:10)
[2018-07-12] MEDS: cefTRIAXone 2,000 MG in SODIUM CHLORIDE 0.9% 100 ML IVPB SCH (07:50)
[2018-07-12] MEDS: cloZAPine 100 MG TAB PO SCH ×3 (07:50→20:10)
[2018-07-12] MEDS: POLYETHYLENE GLYCOL 3350 17 GM POWD.PACK PO SCH (07:50)
[2018-07-12] MEDS: DOCUSATE 100 MG CAP PO SCH ×2 (07:50→20:10)
[2018-07-12] MEDS: SYMBICORT 80-4.5 MCG INHALER INHALATION SCH ×2 (08:51→20:20)
--- NOTE | 2018-07-12 17:39 | PN ---
PROGRESS NOTE DATE OF SERVICE: 07/12/2018 CHIEF COMPLAINT: Status post removal of foreign body from foot. HISTORY OF PRESENT ILLNESS: This gentleman is fairly comfortable, doing well. Cultures from the foot are negative so far. PHYSICAL EXAMINATION: The foot is dressed. Chest is clear. Cardiac exam is normal. He is afebrile. IMPRESSION: Status post removal of foreign body from the right foot. PLAN: Continue with antibiotics and wait for the results of culture for further progress regarding the wound. We have to make a determination when he can go and where when he is discharged. MMODL / IJN: [id number] /
[2018-07-12] MEDS: NICOTINE 21MG/24HR PATCH TRANSDERM SCH (20:10)
[2018-07-12 20:59] VITALS: RESP 18
--- NOTE | 2018-07-12 22:08 | PN ---
PROGRESS NOTE DATE OF SERVICE: 07/12/2018. REASON FOR FOLLOWUP: Right foot cellulitis and possible infected hardware. INTERVAL HISTORY: The patient is currently afebrile. He is breathing comfortably. Denies having any chest pain, shortness of breath, cough. No abdominal pain, or any pain to the right foot area. EXAMINATION: Blood pressure is 110/73 with a pulse of 66, temperature 97.5. He is 97% on room air. General description is a middle-aged male lying in bed in no distress. RESPIRATORY SYSTEM: Unlabored breathing. Clear to auscultation anteriorly. HEART: S1, S2. Regular rate and rhythm. ABDOMEN: Soft, no tenderness. RIGHT MEDIAL FOOT: No significant drainage was noticed on the dressing. LABS: His wound cultures done have been negative. DIAGNOSTIC IMPRESSION AND PLAN: Patient admitted to the hospital with right foot cellulitis and concern for possible infected hardware that has been removed. So far culture has been negative. Currently on ceftriaxone. Given a short course of oral Keflex with close outpatient followup. Continue supportive care. MMODL / IJN: [id number] /
[2018-07-13] MEDS: SYMBICORT 80-4.5 MCG INHALER INHALATION SCH (08:02)
[2018-07-13] MEDS: cefTRIAXone 2,000 MG in SODIUM CHLORIDE 0.9% 100 ML IVPB SCH (08:26)
[2018-07-13] MEDS: LACTATED RINGERS 1,000 ML IV SCH (08:27)
[2018-07-13] MEDS: cloZAPine 100 MG TAB PO SCH (08:27)
[2018-07-13] MEDS: DOCUSATE 100 MG CAP PO SCH (08:27)
[2018-07-13] MEDS: POLYETHYLENE GLYCOL 3350 17 GM POWD.PACK PO SCH (08:27)
[2018-07-13] MEDS: DIVALPROEX ER 500 MG TAB.ER.24H PO SCH (08:27)
[2018-07-13] MEDS: FAMOTIDINE 20 MG TAB PO SCH (08:27)
[2018-07-13 11:58] VITALS: BP 117/75; PULSE 77; TEMP 98
[2018-07-13] MEDS ORDERED: CEPHALEXIN 500 MG CAP PO SCH (13:00)
--- NOTE | 2018-07-13 15:04 | PN ---
PROGRESS NOTE DATE OF SERVICE: 07/13/2018 REASON FOR FOLLOWUP: Right foot cellulitis. INTERVAL HISTORY: The patient is currently afebrile. She is breathing comfortably. Denies having any chest pain, shortness of breath, no cough, no abdominal pain, only pain in the right foot area. PHYSICAL EXAMINATION: Blood pressure 117/75 with pulse of 77, temperature 98 she is 93% on room air. General description is a middle-aged male lying in bed in no distress. RESPIRATORY SYSTEM: Unlabored breathing, clear to auscultation anteriorly. HEART: S1, S2. Regular rate and rhythm. RESPIRATORY: There is some chest tightness. No obvious drainage on the dressing. LABS: Wound culture has been negative. DIAGNOSTIC IMPRESSION AND PLAN: Patient with right foot hardware exposed that has been removed with concern for underlying infection; however, no evidence of any deep infection at time of surgery. Culture has been negative. Will finish therapy with oral Keflex with close outpatient followup. Continue supportive care. MMODL / IJN: [id number] /
--- NOTE | 2018-07-13 15:34 | DS ---
DISCHARGE SUMMARY CHIEF COMPLAINT: Cellulitis and foreign body of the right foot. HISTORY OF PRESENT ILLNESS AND PHYSICAL EXAM: Details of this man's history and physical can be found in the initial workup. LABORATORY STUDIES: While he was in a hospital, he had laboratory studies, details of which can be found in the laboratory section of his chart. COURSE IN THE HOSPITAL: After admission, he was placed on bedrest, started on intravenous fluids and seen by Orthopedics, who took him to the operating room and removed the screw. That did not look as though there was osteomyelitis at that time. He did well. There is no further issue and it was felt he could be discharged on 07/13 and he will [facility]. Will have been followed by [facility]. FINAL DIAGNOSES: 1. Cellulitis and foreign body in the right foot. 2. Old crush injury to the right foot. 3. Schizophrenia. OPERATIONS: Removal of screw from the right foot. CONSULTATIONS: Infectious Disease and Orthopedics. He is improved. MMODL / IJN: [id number] /
[2018-07-14] MEDS ORDERED: cloZAPine 100 MG TAB PO SCH ×3 (09:00→21:00)
--- NOTE | 2018-07-15 09:47 | CDI ---
Last Revision, September 2017 Documentation Clarification Form Date: 07/15/18 From: Ashley Duke Phone: If you have a question regarding this query, please contact Noemí Yo at [phone] between 8am and 5pm. Admit Date: 07/10/2018 7:35:00 AM Patient Name: Robbie Contreras Visit Number: [id number] Discharge Date: 07/13/18 ATTENTION: The Clinical Documentation Specialists (CDI) and [facility] Coding Staff appreciate your assistance in clarifying documentation. Please respond to the clarification below the line at the bottom and electronically sign. The CDI & [facility] Coding staff will review the response and follow-up if needed. Please note: Queries are made part of the Legal Health Record. If you have any questions, please contact the author of this message via ITS. Dr. PETERSON, Umesh Sevilla MD Possible sepsis is documented in the H&P and in your 07/08 progress note. History/Risk Factors: Patient was admitted with cellulitis of the right foot due to a screw that was protruding through the skin from a previous surgery with placement of hardware. Clinical Indicators: Pallor, weakness, malaise and diaphoresis. WBC/Left Shift: 11.7/8.70 Lactic acid: 2.1 Blood cultures: No growth. Vitals signs on admission: T. 97.9, P. 101, R. 18, BP 118/76 Treatment: Antibiotics: IV Vancomycin, IV Zosyn and IV Ceftriaxone IV Bolus: Sodium Chloride 1,000 mls @999 mls/hr In your professional opinion, please clarify if these findings signify one of the following conditions: Sepsis ruled out SIRS, without underlying infectious process Sepsis Severe Sepsis Septic Shock Other, please specify Unable to determine Link or clarify if there is associated (due to/with): Organ failure Shock MTDD
--- NOTE | 2018-07-21 10:53 | MISC ---
MISCELLANOUS REPORT QUERY Question was about sepsis. Sepsis was ruled out. MMODL / IJN: [id number] /
== END 2018-07-13 15:30 | disposition home health service (06) | DRG 493 ==
LOC: EC 13:42 → EEVIPCON 13:42 → 5MS5E 16:21 → OBSVTOIN 07-10 07:35
PROVIDERS: ADMIT Family Medicine; ATTEND Family Medicine
PROC: 0SPF04Z Removal of Internal Fixation Device from Right Ankle Joint, Open Approach (ICD-10-PCS; principal; 2018-07-09 09:50)
DX: T84.629A Infection and inflammatory reaction due to internal fixation device of unspecified bone of leg, initial encounter (principal); L03.115 Cellulitis of right lower limb; E78.5 Hyperlipidemia, unspecified; F20.9 Schizophrenia, unspecified; F31.9 Bipolar disorder, unspecified; I10 Essential (primary) hypertension; K21.9 Gastro-esophageal reflux disease without esophagitis; R29.6 Repeated falls; F17.210 Nicotine dependence, cigarettes, uncomplicated; M14.671 Charcot's joint, right ankle and foot; Z79.82 Long term (current) use of aspirin; Z79.51 Long term (current) use of inhaled steroids; Z79.899 Other long term (current) drug therapy
CPT/HCPCS: 36415; 80053; 81003; 83605; 85025; 85652; 86140; 87040; 87070; 87075; 87205; 94640; 96360; 99285

== ENCOUNTER 2023-03-17 17:05 | Emergency (ER) | payer MEDICARE, OTHER ==
[2023-03-17 19:01] VITALS: TEMP 97.9
[2023-03-17 21:15] LABS: Amphetamine Screen,Urine Not Detected (NotDetected); Barbiturate Screen,Urine Not Detected (NotDetected); Benzodiazepines Screen,Urine Not Detected (NotDetected); Cocaine Screen,Urine Not Detected (NotDetected); Methadone Screen, Urine Not Detected (NotDetected); Opiate Screen,Urine Not Detected (NotDetected); Oxycodone Screen, Urine Not Detected (NotDetected); Phencyclidine Screen,Urine Not Detected (NotDetected); Tricyclic Antidepressant,Urine Detected (NotDetected); Urn Cannabinoid Scrn Not Detected (NotDetected)
[2023-03-17 21:19] LABS: Basophils % (A) 0 %; Eosinophils # (A) 0.1 k/uL (0-0.7); Eosinophils % (A) 1 %; HCT 46.5 % (39.0-53.0); Lymphocytes # (A) 1.2 k/uL (1.0-4.8); Lymphocytes % (A) 18 %; MCH 31.4 pg (25.0-35.0); MCHC 32.2 g/dL (31.0-37.0); MCV 97.5 fL (80.0-100.0); Mean Platelet Volume 7.1; Monocytes # (A) 0.6 k/uL (0-1.0); Monocytes % (A) 9 %; Neutrophils % (A) 71 %; Platelet Count 338 k/uL (150-450); RBC 4.77 m/uL (4.30-5.90); RDW 13.4 % (11.5-15.5); WBC 7.1 k/uL (3.8-10.6)
[2023-03-17 21:27] LABS: ALT 17 U/L (4-49); AST 30 U/L (17-59); African American GFR (CKD) >90 (>60 ml/min/1.73 sqM); Albumin 3.6 g/dL (3.5-5.0); Alkaline Phosphatase 89 U/L (38-126); Anion Gap 7 mmol/L; Blood Urea Nitrogen 17 mg/dL (9-20); Calcium 9.2 mg/dL (8.4-10.2); Carbon Dioxide 29 mmol/L (22-30); Chloride 99 mmol/L (98-107); Non-African American GFR(CKD) >90 (>60 ml/min/1.73 sqM); Potassium 4.6 mmol/L (3.5-5.1); Sodium 135 mmol/L (137-145); Total Bilirubin 0.7 mg/dL (0.2-1.3); Total Protein 6.3 g/dL (6.3-8.2)
[2023-03-17 21:33] LABS: Valproic Acid (Depakene) 47.7 ug/mL
[2023-03-17 21:42] LABS: Glucose 87 mg/dL (74-99)
--- NOTE | 2023-03-17 21:45 | ED ---
Psych HPI - General Chief Complaint: Psychiatric Symptoms Stated Complaint: mental health Time Seen by Provider: 03/17/23 18:47 Source: patient Mode of arrival: ambulatory - History of Present Illness Initial Comments: This patient is a 62-year-old man who presents to have evaluation for worsening of auditory hallucinations and also for having racing thoughts. Patient has history of this. Denies suicidal ideation. MD Complaint: other -: days(s) Associated Psychiatric Symptoms: racing thoughts, auditory hallucinations History of same: Yes Quality: getting worse Improves With: none Worsens With: none Associated Symptoms: denies other symptoms - Related Data Home Medications Medication Instructions Recorded Confirmed cloZAPine [Clozaril] 300 mg PO HS 03/14/14 03/17/23 Atorvastatin [Lipitor] 20 mg PO HS 07/07/18 03/17/23 Divalproex ER [Depakote ER] 1,000 mg PO DAILY 07/07/18 03/17/23 Divalproex ER [Depakote ER] 1,500 mg PO HS 07/07/18 03/17/23 cloZAPine [Clozaril] 100 mg PO DAILY 07/07/18 03/17/23 cloZAPine [Clozaril] 100 mg PO DAILY@1800 07/07/18 03/17/23 Allergies Allergy/AdvReac Type Severity Reaction Status Date / Time No Known Allergies Allergy Verified 03/17/23 20:27 Review of Systems ROS Statement: Those systems with pertinent positive or pertinent negative responses have been documented in the HPI. ROS Other: All systems not noted in ROS Statement are negative. Constitutional: Denies: fever, chills Respiratory: Denies: cough, dyspnea Cardiovascular: Denies: chest pain, palpitations Gastrointestinal: Denies: abdominal pain, vomiting Genitourinary: Denies: dysuria Musculoskeletal: Denies: back pain Neurological: Denies: headache, weakness, confusion Psychiatric: Reports: auditory hallucinations. Denies: depression, visual hallucinations, homicidal thoughts, suicidal thoughts Past Medical History Past Medical History: GERD/Reflux, Hyperlipidemia, Hypertension Additional Past Medical History / Comment(s): pt alert and orientated to 3 but poor historian . commercial underwriter called [facility] public guardian for code status. dr orantes and [facility] closed commercial underwriter unable to get any hx info or vaccine dates. per [facility]:bipolar, schizophrenia, recent falls. per [facility] seizure 2013 ?fx rt foot in past History of Any Multi-Drug Resistant Organisms: None Reported Additional Past Surgical History / Comment(s): fx right foot. per pt "upper,lower scope" Past Anesthesia/Blood Transfusion Reactions: Unable to Obtain Past Psychological History: Bipolar, Schizophrenia Past Alcohol Use History: Rare Past Drug Use History: None Reported - Past Family History Mother Additional Family Medical History / Comment(s): "i think she had heart problems" Father Family Medical History: Liver Disease Additional Family Medical History / Comment(s): "cirrhosis of the liver, heart problems-cardiac arrest"" General Exam Limitations: no limitations General appearance: alert, in no apparent distress Head exam: Present: atraumatic, normocephalic Eye exam: Present: normal appearance. Absent: scleral icterus, conjunctival injection Respiratory exam: Present: normal lung sounds bilaterally. Absent: respiratory distress, wheezes, rales, rhonchi, stridor Cardiovascular Exam: Present: regular rate, normal rhythm, normal heart sounds. Absent: systolic murmur, diastolic murmur, rubs, gallop GI/Abdominal exam: Present: soft. Absent: distended, tenderness, guarding, rebound, rigid Extremities exam: Present: normal inspection, normal capillary refill Neurological exam: Present: alert, normal gait Psychiatric exam: Present: manic. Absent: depressed, agitated, anxious, homicidal ideation, suicidal ideation Course Vital Signs 03/17/23 03/17/23 03/17/23 17:32 18:58 21:54 Temperature 98 F 97.9 F Pulse Rate 100 93 82 Respiratory 20 20 18 Rate Blood Pressure 157/82 157/97 164/100 O2 Sat by Pulse 95 93 L 93 L Oximetry Medical Decision Making - Medical Decision Making Patient is 62-year-old man with long-standing history of psychiatric disorder. He is in today because his symptoms are little worse. Patient is seen by EPS and they have set up outpatient treatment plan. Patient will return if he is feeling any worse. Was pt. sent in by a medical professional or institution (, PA, CLOTH CHECKER, urgent care, hospital, or care home...) When possible be specific @ -[No] Did you speak to anyone other than the patient for history (EMS, parent, family, police, friend...)? What history was obtained from this source @ -[No] Did you review nursing and triage notes (agree or disagree)? Why? @ -[I reviewed and agree with nursing and triage notes] Were old charts reviewed (outside hosp., previous admission, EMS record, old EKG, old radiological studies, urgent care reports/EKG's, care home records)? Report findings @ -[No old charts were reviewed] Differential Diagnosis (chest pain, altered mental status, abdominal pain women, abdominal pain men, vaginal bleeding, weakness, fever, dyspnea, syncope, headache, dizziness, GI bleed, back pain, seizure, CVA, palpatations, mental health, musculoskeletal)? @ -[Differential Mental Health Depression, anxiety, bipolar, psychosis, schizophrenia, borderline personality, situational depression, adjustment disorder, behavioral disorder, brain tumor, malingering, substance abuse, encephalopathy, medication reaction, dementia, hypothyroidism, degenerative neurologic disorder, lupus.... This is not meant to be all-inclusive list EKG interpreted by me (3pts min.). @ -[ X-rays interpreted by me (1pt min.). @ -[None done] CT interpreted by me (1pt min.). @ -[None done] U/S interpreted by me (1pt. min.). @ -[None done] What testing was considered but not performed or refused? (CT, X-rays, U/S, labs)? Why? @ -[None] What meds were considered but not given or refused? Why? @ -[None] Did you discuss the management of the patient with other professionals (professionals i.e. , PA, CLOTH CHECKER, lab, RT, psych nurse, social services aide, amortization schedule clerk, teacher, loan review officer, correctional counselor/case manager)? Give summary @ -[Case discussed with EPS personnel Was smoking cessation discussed for >3mins.? @ -[No] Was critical care preformed (if so, how long)? @ -[No] Were there social determinants of health that impacted care today? How? (Homel essness, low income, unemployed, alcoholism, drug addiction, transportation, low edu. Level, literacy, decrease access to med. care, retirement, rehab)? @ -[No] Was there de-escalation of care discussed even if they declined (Discuss DNR or withdrawal of care, Hospice)? DNR status @ -[No] What co-morbidities impacted this encounter? (DM, HTN, Smoking, COPD, CAD, Cancer, CVA, ARF, Chemo, Hep., AIDS, mental health diagnosis, sleep apnea, morbid obesity)? @ -[None] Was patient admitted / discharged? Hospital course, mention meds given and route, prescriptions, significant lab abnormalities, going to OR and other pertinent info. @ -[Discharged, as above Undiagnosed new problem with uncertain prognosis? @ -[No] Drug Therapy requiring intensive monitoring for toxicity (Heparin, Nitro, Insulin, Cardizem)? @ -[No] Were any procedures done? @ -[No] Diagnosis/symptom? @ -[Acute on chronic psychosis Acute, or Chronic, or Acute on Chronic? @ -[default] Uncomplicated (without systemic symptoms) or Complicated (systemic symptoms)? @ -[Uncomplicated Side effects of treatment? @ -[No] Exacerbation, Progression, or Severe Exacerbation? @ -[No] Poses a threat to life or bodily function? How? (Chest pain, USA, IA, pneumonia, PE, COPD, DKA, ARF, appy, cholecystitis, CVA, Diverticulitis, Homicidal, Suicidal, threat to staff... and all critical care pts) @ -[No] - Lab Data Result diagrams: 03/17/23 20:57 03/17/23 21:03 Lab Results 03/17/23 03/17/23 03/17/23 Range/Units 20:47 20:57 21:03 WBC 7.1 (3.8-10.6) k/uL RBC 4.77 (4.30-5.90) m/uL Hgb 15.0 (13.0-17.5) gm/dL Hct 46.5 (39.0-53.0) % MCV 97.5 (80.0-100.0) fL MCH 31.4 (25.0-35.0) pg MCHC 32.2 (31.0-37.0) g/dL RDW 13.4 (11.5-15.5) % Plt Count 338 (150-450) k/uL MPV 7.1 Neutrophils % 71 % Lymphocytes % 18 % Monocytes % 9 % Eosinophils % 1 % Basophils % 0 % Neutrophils # 5.0 (1.3-7.7) k/uL Lymphocytes # 1.2 (1.0-4.8) k/uL Monocytes # 0.6 (0-1.0) k/uL Eosinophils # 0.1 (0-0.7) k/uL Basophils # 0.0 (0-0.2) k/uL Sodium 135 L (137-145) mmol/L Potassium 4.6 (3.5-5.1) mmol/L Chloride 99 (98-107) mmol/L Carbon Dioxide 29 (22-30) mmol/L Anion Gap 7 mmol/L BUN 17 (9-20) mg/dL Creatinine 0.79 (0.66-1.25) mg/dL Est GFR (CKD-EPI)AfAm >90 (>60 ml/min/1.73 sqM) Est GFR (CKD-EPI)NonAf >90 (>60 ml/min/1.73 sqM) Glucose 87 (74-99) mg/dL Calcium 9.2 (8.4-10.2) mg/dL Total Bilirubin 0.7 (0.2-1.3) mg/dL AST 30 (17-59) U/L ALT 17 (4-49) U/L Alkaline Phosphatase 89 (38-126) U/L Total Protein 6.3 (6.3-8.2) g/dL Albumin 3.6 (3.5-5.0) g/dL Urine Opiates Screen Not Detected (NotDetected) Ur Oxycodone Screen Not Detected (NotDetected) Urine Methadone Screen Not Detected (NotDetected) Ur Propoxyphene Screen Not Detected (NotDetected) Ur Barbiturates Screen Not Detected (NotDetected) Valproic Acid 47.7 ug/mL U Tricyclic Antidepress Detected H (NotDetected) Ur Phencyclidine Scrn Not Detected (NotDetected) Ur Amphetamines Screen Not Detected (NotDetected) U Methamphetamines Scrn Not Detected (NotDetected) U Benzodiazepines Scrn Not Detected (NotDetected) Urine Cocaine Screen Not Detected (NotDetected) U Marijuana (THC) Screen Not Detected (NotDetected) Disposition Clinical Impression: Psychosis Disposition: HOME SELF-CARE Condition: Fair Instructions (If sedation given, give patient instructions): Psychotic Disorder (ED) Is patient prescribed a controlled substance at d/c from ED?: No Referrals: Umesh Chen MD [Primary Care Provider] - 1-2 days
[2023-03-17 21:56] VITALS: BP 164/100; PULSE 82; RESP 18
== END 2023-03-17 22:40 | disposition home or self-care (01) ==
LOC: EC 17:05
DX: F29 Unspecified psychosis not due to a substance or known physiological condition (principal); I10 Essential (primary) hypertension; E78.5 Hyperlipidemia, unspecified; F31.9 Bipolar disorder, unspecified; Z79.899 Other long term (current) drug therapy
CPT/HCPCS: 36415; 80053; 80164; 80306; 82075; 85025; 99285